=== PATIENT | female | born 1995 | race Caucasian/White ===

== ENCOUNTER 2023-04-23 07:02 | Day surgery (SDC) | payer OTHER ==
[2023-04-22 10:32] VITALS: BMI 29.0
[2023-04-23 08:13] LABS: Hematocrit 40.4 % (36.0-47.0)
[2023-04-23 08:27] LABS: BHCG - Serum Negative (NEGATIVE); Pregs Control Background? CLEAR/WHITE (CLR/WHITE); Pregs Control Bar Appear? YES (CONTROL BAR)
[2023-04-23] MEDS ORDERED: Oxymetazoline HCl 0.05% (30 ML BOT) ONE (08:40)
[2023-04-23] MEDS ORDERED: fentaNYL PF 100 MCG/2 ML SYRINGE ONE ×3 (09:10→11:59)
[2023-04-23] MEDS ORDERED: Midazolam HCl 2 mg/2 ml Vial ONE (09:10)
[2023-04-23] MEDS ORDERED: PROPOFOL 20 ML ONE ×2 (09:10→09:35)
[2023-04-23] MEDS ORDERED: Ondansetron PF 4 MG/2 ML Vial ONE (09:34)
[2023-04-23] MEDS ORDERED: Dexamethasone 20 MG/5 ML VIAL ONE (09:34)
[2023-04-23] MEDS ORDERED: Lidocaine 1% PF 5 ML VIAL ONE (09:34)
[2023-04-23] MEDS ORDERED: Lidocaine 1% (PF) 30 ML VIAL ONE (09:36)
[2023-04-23] MEDS ORDERED: Ferric Subsulfate 8 ML TOPICAL SOLN ONE (09:36)
[2023-04-23] MEDS ORDERED: EPINEPHrine 1 MG/ML VIAL ONE (09:36)
[2023-04-23] MEDS ORDERED: HYDROmorphone 0.5 MG/0.5 ML SYRINGE ONE (09:37)
[2023-04-23] MEDS ORDERED: fentaNYL 50 mcg/mL 1 mL Vial ONE (11:37)
[2023-04-23] MEDS ORDERED: diphenhydrAMINE 50 MG/ML VIAL ONE (12:21)
[2023-04-23] MEDS ORDERED: Hydrocodone-Acetamin 15 ML UDCUP ONE (12:52)
== END 2023-04-23 14:35 | disposition home or self-care (01) ==
LOC: SDC 07:02
PROVIDERS: ATTEND Otolaryngology Plastic Surgery within the Head & Neck
PROC: 0CBQ0ZZ Excision of Adenoids, Open Approach (ICD-10-PCS; principal; 2023-04-23)
PROC: 0CBPXZZ Excision of Tonsils, External Approach (ICD-10-PCS; principal; 2023-04-23)
PROC: 09TL0ZZ Resection of Nasal Turbinate, Open Approach (ICD-10-PCS; principal; 2023-04-23)
DX: J35.03 Chronic tonsillitis and adenoiditis (principal); J34.3 Hypertrophy of nasal turbinates; J32.0 Chronic maxillary sinusitis; J34.89 Other specified disorders of nose and nasal sinuses; J45.909 Unspecified asthma, uncomplicated; G47.33 Obstructive sleep apnea (adult) (pediatric)
CPT/HCPCS: 84703; 85014; 88304; J0171; J1100; J1170; J1200; J2001; J2250; J2405; J2704; J3010